=== PATIENT | male | born 1950 | race Caucasian/White ===

== ENCOUNTER 2024-03-25 00:49 | Inpatient (IN) | payer MEDICARE, OTHER ==
[2024-03-25] MEDS ORDERED: Nitroglycerin 0.4 MG TAB (25 Tab Bottle) SL PRN (02:48)
[2024-03-25] MEDS ORDERED: Heparin 25,000 units/D5W 500 ML IV SCH (03:00)
[2024-03-25 03:30] LABS: Hematocrit 35.6 % (42.0-52.0); Hemoglobin 11.9 g/dL (14.0-18.0); Platelet Count 410 10x3/uL (130-400)
[2024-03-25 03:54] LABS: Troponin I 9.133 ng/mL (< 0.028)
[2024-03-25 04:28] LABS: Influenza A by NAA Not Detected (NotDetected); Influenza B by NAA Not Detected (NotDetected); RSV by NAA Not Detected (NotDetected); SARS-CoV-2 NAA Rapid Test Not Detected (NotDetected)
[2024-03-25] MEDS: Aspirin Chewable 81 MG TAB PO SCH (08:14)
[2024-03-25] MEDS: Sodium Chloride 0.9% 1,000 ML IV SCH (08:14)
[2024-03-25] MEDS: Metoprolol Tartrate 25 MG TAB PO SCH (08:14)
[2024-03-25] MEDS: Pantoprazole DR 40 MG TAB PO SCH (08:14)
[2024-03-25] MEDS: Heparin 10,000 UNITS/ 10 ML VIAL SLOW IVP SCH (08:31)
[2024-03-25] MEDS: Furosemide 100 MG (10 mL) VIAL SLOW IVP SCH (09:04)
[2024-03-25] MEDS: Labetalol HCl 100 MG/20 ML VIAL SLOW IVP SCH (09:04)
[2024-03-25 09:47] LABS: #Basophils 0.07 10x3/uL (0.0-0.2); %Basophils 0.4 % (0.0-1.0); %Eosinophils 1.3 % (0.0-10.0); %Lymphocytes 10.3 % (21.0-51.0); %Monocytes 7.6 % (0.0-10.0); %Neutrophils 79.6 % (42.0-75.0); Hematocrit 38.3 % (42.0-52.0); Hemoglobin 12.7 g/dL (14.0-18.0); Mean Corpuscular HGB CONC 33.2 g/dL (32.0-36.0); Mean Corpuscular Hemoglobin 29.7 pg (27.0-31.0); Mean Corpuscular Volume 89.5 fL (78.0-98.0); Platelet Count 492 10x3/uL (130-400); RBC Distribution Width 12.9 % (11.5-14.5); Red Blood Cell (RBC) Count 4.28 mill/uL (4.70-6.10)
[2024-03-25 10:26] LABS: Anion Gap 20 mmol/L (10-20); BUN (Urea Nitrogen) 51 mg/dL (8.4-25.7); Calc. Creatinine Clearance 12 mL/min (70-130); Carbon Dioxide 21 mmol/L (23-31); Chloride 106 mmol/L (98-107); Estimated GFR 7; Glucose 133 mg/dL (83-110); Magnesium 2.2 mg/dL (1.6-2.6); Potassium 3.8 mmol/L (3.5-5.1); Sodium 143 mmol/L (136-145)
[2024-03-25 13:56] LABS: D-Dimer Test 1.96 mcg/mL (0.27-0.43); PTT 64.8 sec (22.9-36.1)
[2024-03-25] MEDS: Amlodipine 5 MG TAB PO SCH (17:26)
[2024-03-25] MEDS: Ipratropium/Albuterol 3 ML NEB NEB PRN (20:26)
[2024-03-25] MEDS: Carvedilol 6.25 MG TAB PO SCH (20:46)
[2024-03-25] MEDS: Atorvastatin Calcium 20 MG TAB PO SCH (20:46)
[2024-03-25] MEDS: Heparin 25,000 units/D5W 500 ML IVPB SCH (22:00)
[2024-03-26 04:48] LABS: Albumin 2.8 g/dL (3.4-4.8); Anion Gap 20 mmol/L (10-20); BUN (Urea Nitrogen) 63 mg/dL (8.4-25.7); BUN/Creatinine Ratio 8.81; Calc. Creatinine Clearance 13 mL/min (70-130); Calcium 7.7 mg/dL (7.8-10.44); Carbon Dioxide 19 mmol/L (23-31); Cardiac Risk 6.8 (Less than 4.5); Chloride 107 mmol/L (98-107); Cholesterol 164 mg/dl (< 200 Desired); Estimated GFR 7; Glucose 115 mg/dL (83-110); HDL Cholesterol 24 mg/dL (>60 Neg Risk); LDL Cholesterol, Calculated 118 mg/dL; Phosphorus 5.5 mg/dL (2.3-4.7); Potassium 3.4 mmol/L (3.5-5.1); Sodium 143 mmol/L (136-145); Triglycerides 110 mg/dL (Less than 150)
[2024-03-26] MEDS: Amlodipine 5 MG TAB PO SCH (11:54)
[2024-03-26 14:44] LABS: Bilirubin Negative (Negative); Blood, Urine Trace (Negative); CAUTI Indications for Culture Dysuria,urgency,freq; Clarity Clear (Clear); Glucose, Urine (Dipstick) Normal (Negative); Ketone, Urine Negative (Negative); Leukocyte 25 Leu/uL (Negative); Nitrite Negative (Negative); Protein, Urine (Dipstick) Negative (Neg-Trace); RBC/HPF 0-3 HPF (0-3); Specific Gravity, Urine 1.001 (1.002-1.036); Squamous Epithelial None Seen HPF (0-3); Urobilinogen Normal mg/dL (Less than 2); WBC/HPF 0-3 HPF (0-3)
[2024-03-26 14:45] LABS: Bacteria/HPF Rare-Few HPF (None Seen)
[2024-03-26 14:46] LABS: Urine Culture Reflex No No
[2024-03-26] MEDS: Furosemide 40 MG (4 mL) VIAL SLOW IVP SCH (16:46)
[2024-03-27 02:54] LABS: #Basophils 0.08 10x3/uL (0.0-0.2); %Basophils 0.5 % (0.0-1.0); %Eosinophils 2.9 % (0.0-10.0); %Lymphocytes 15.8 % (21.0-51.0); %Monocytes 9.1 % (0.0-10.0); %Neutrophils 70.8 % (42.0-75.0); Mean Corpuscular HGB CONC 33.3 g/dL (32.0-36.0); Mean Corpuscular Hemoglobin 30.1 pg (27.0-31.0); Mean Corpuscular Volume 90.4 fL (78.0-98.0); Mean Platelet Volume 10.6 fL (7.4-10.4); Platelet Count 418 10x3/uL (130-400); RBC Distribution Width 12.7 % (11.5-14.5); Red Blood Cell (RBC) Count 3.65 mill/uL (4.70-6.10)
[2024-03-27 03:22] LABS: Anion Gap 17 mmol/L (10-20); BUN (Urea Nitrogen) 52 mg/dL (8.4-25.7); Calc. Creatinine Clearance 19 mL/min (70-130); Carbon Dioxide 23 mmol/L (23-31); Chloride 108 mmol/L (98-107); Estimated GFR 12; Glucose 109 mg/dL (83-110); Potassium 2.8 mmol/L (3.5-5.1); Sodium 145 mmol/L (136-145)
[2024-03-27] MEDS: Potassium Chloride 20 MEQ TAB PO SCH (04:31)
[2024-03-27 10:23] LABS: Potassium 3.1 mmol/L (3.5-5.1)
[2024-03-28 03:16] LABS: #Basophils 0.11 10x3/uL (0.0-0.2); %Basophils 0.7 % (0.0-1.0); %Eosinophils 3.9 % (0.0-10.0); %Lymphocytes 22.2 % (21.0-51.0); %Monocytes 9.1 % (0.0-10.0); %Neutrophils 62.7 % (42.0-75.0); Hematocrit 36.8 % (42.0-52.0); Hemoglobin 12.3 g/dL (14.0-18.0); Mean Corpuscular HGB CONC 33.4 g/dL (32.0-36.0); Mean Corpuscular Volume 89.8 fL (78.0-98.0); Mean Platelet Volume 10.4 fL (7.4-10.4); Platelet Count 503 10x3/uL (130-400); RBC Distribution Width 12.7 % (11.5-14.5)
[2024-03-28 03:36] LABS: Anion Gap 19 mmol/L (10-20); BUN (Urea Nitrogen) 38 mg/dL (8.4-25.7); Calc. Creatinine Clearance 37 mL/min (70-130); Calcium 8.3 mg/dL (7.8-10.44); Carbon Dioxide 27 mmol/L (23-31); Chloride 99 mmol/L (98-107); Estimated GFR 28; Glucose 107 mg/dL (83-110); Potassium 2.7 mmol/L (3.5-5.1); Sodium 142 mmol/L (136-145)
[2024-03-28] MEDS: Heparin 5,000 UNITS/ML VIAL SC SCH (13:46)
[2024-03-29 04:34] LABS: Hematocrit 38.3 % (42.0-52.0); Hemoglobin 13.1 g/dL (14.0-18.0); Platelet Count 498 10x3/uL (130-400)
[2024-03-29 04:35] LABS: #Basophils 0.12 10x3/uL (0.0-0.2); %Basophils 0.8 % (0.0-1.0); %Eosinophils 5.6 % (0.0-10.0); %Lymphocytes 15.8 % (21.0-51.0); %Monocytes 10.3 % (0.0-10.0); %Neutrophils 65.7 % (42.0-75.0); Hematocrit 38.3 % (42.0-52.0); Hemoglobin 12.7 g/dL (14.0-18.0); Mean Corpuscular HGB CONC 33.2 g/dL (32.0-36.0); Mean Corpuscular Hemoglobin 29.8 pg (27.0-31.0); Mean Corpuscular Volume 89.9 fL (78.0-98.0); Mean Platelet Volume 10.3 fL (7.4-10.4); Platelet Count 522 10x3/uL (130-400); RBC Distribution Width 12.5 % (11.5-14.5); Red Blood Cell (RBC) Count 4.26 mill/uL (4.70-6.10)
[2024-03-29 04:46] LABS: Anion Gap 19 mmol/L (10-20); BUN (Urea Nitrogen) 28 mg/dL (8.4-25.7); Calc. Creatinine Clearance 53 mL/min (70-130); Calcium 8.2 mg/dL (7.8-10.44); Carbon Dioxide 28 mmol/L (23-31); Chloride 98 mmol/L (98-107); Estimated GFR 45; Glucose 106 mg/dL (83-110); Potassium 2.6 mmol/L (3.5-5.1); Sodium 142 mmol/L (136-145)
[2024-03-29] MEDS ORDERED: Electrolyte Replacement Protocol 1 EACH FS SCH (05:00)
[2024-03-29] MEDS: Potassium Chloride 20 MEQ TAB PO SCH ×2 (05:42→23:12)
[2024-03-29] MEDS: Potassium Chloride 40 MEQ in Sodium Chloride 0.9% 250 ML 250 ML IVPB SCH (11:20)
[2024-03-29 18:25] LABS: Anion Gap 16 mmol/L (10-20); BUN (Urea Nitrogen) 23 mg/dL (8.4-25.7); Calc. Creatinine Clearance 57 mL/min (70-130); Calcium 8.4 mg/dL (7.8-10.44); Carbon Dioxide 29 mmol/L (23-31); Chloride 99 mmol/L (98-107); Estimated GFR 50; Glucose 101 mg/dL (83-110); Magnesium 1.7 mg/dL (1.6-2.6); Potassium 3.1 mmol/L (3.5-5.1); Sodium 141 mmol/L (136-145)
[2024-03-29] MEDS: Magnesium 2 GM/50 ML(in water) 2 GM in Premix 1 BAG IVPB SCH (23:48)
[2024-03-30 04:24] LABS: #Basophils 0.13 10x3/uL (0.0-0.2); %Basophils 0.8 % (0.0-1.0); %Eosinophils 4.8 % (0.0-10.0); %Lymphocytes 18.6 % (21.0-51.0); %Monocytes 9.5 % (0.0-10.0); %Neutrophils 64.4 % (42.0-75.0); Hematocrit 35.8 % (42.0-52.0); Hemoglobin 11.9 g/dL (14.0-18.0); Mean Corpuscular HGB CONC 33.2 g/dL (32.0-36.0); Mean Corpuscular Volume 90.2 fL (78.0-98.0); Mean Platelet Volume 10.3 fL (7.4-10.4); Platelet Count 521 10x3/uL (130-400); RBC Distribution Width 12.7 % (11.5-14.5); Red Blood Cell (RBC) Count 3.97 mill/uL (4.70-6.10)
[2024-03-30 04:34] LABS: Anion Gap 14 mmol/L (10-20); BUN (Urea Nitrogen) 20 mg/dL (8.4-25.7); Calc. Creatinine Clearance 64 mL/min (70-130); Calcium 8.2 mg/dL (7.8-10.44); Carbon Dioxide 27 mmol/L (23-31); Chloride 102 mmol/L (98-107); Estimated GFR 58; Glucose 105 mg/dL (83-110); Potassium 3.4 mmol/L (3.5-5.1); Sodium 140 mmol/L (136-145)
[2024-03-30] MEDS: Potassium Chloride 20 MEQ TAB PO SCH (09:29)
[2024-03-30] MEDS ORDERED: Communication Order-Pharmacy FS SCH (13:30)
[2024-03-31 04:22] LABS: #Basophils 0.12 10x3/uL (0.0-0.2); %Basophils 0.7 % (0.0-1.0); %Eosinophils 5.4 % (0.0-10.0); %Lymphocytes 18.9 % (21.0-51.0); %Monocytes 9.4 % (0.0-10.0); %Neutrophils 62.8 % (42.0-75.0); Hematocrit 35.2 % (42.0-52.0); Hemoglobin 11.6 g/dL (14.0-18.0); Mean Platelet Volume 10.3 fL (7.4-10.4); Platelet Count 509 10x3/uL (130-400); RBC Distribution Width 12.7 % (11.5-14.5); Red Blood Cell (RBC) Count 3.87 mill/uL (4.70-6.10)
[2024-03-31 04:39] LABS: Anion Gap 12 mmol/L (10-20); BUN (Urea Nitrogen) 19 mg/dL (8.4-25.7); Calc. Creatinine Clearance 75 mL/min (70-130); Calcium 8.2 mg/dL (7.8-10.44); Carbon Dioxide 25 mmol/L (23-31); Chloride 103 mmol/L (98-107); Estimated GFR 70; Glucose 103 mg/dL (83-110); Potassium 3.4 mmol/L (3.5-5.1); Sodium 137 mmol/L (136-145)
[2024-03-31] MEDS: Potassium Chloride 20 MEQ TAB PO SCH (09:39)
[2024-03-31] MEDS ORDERED: Communication Order-Pharmacy FS SCH (10:15)
[2024-03-31 13:25] VITALS: BMI 27.3
[2024-03-31] MEDS: Melatonin 3 MG TAB PO SCH (20:54)
[2024-03-31] MEDS: Sodium Chloride 0.9% 1,000 ML IV SCH (20:55)
[2024-04-01 04:46] LABS: #Basophils 0.16 10x3/uL (0.0-0.2); %Basophils 0.9 % (0.0-1.0); %Eosinophils 4.8 % (0.0-10.0); %Lymphocytes 19.6 % (21.0-51.0); %Monocytes 9.3 % (0.0-10.0); %Neutrophils 62.6 % (42.0-75.0); Hematocrit 34.2 % (42.0-52.0); Mean Corpuscular HGB CONC 32.2 g/dL (32.0-36.0); Mean Corpuscular Hemoglobin 30.1 pg (27.0-31.0); Mean Corpuscular Volume 93.4 fL (78.0-98.0); Mean Platelet Volume 10.4 fL (7.4-10.4); Platelet Count 507 10x3/uL (130-400); RBC Distribution Width 12.7 % (11.5-14.5); Red Blood Cell (RBC) Count 3.66 mill/uL (4.70-6.10)
[2024-04-01 05:08] LABS: Anion Gap 14 mmol/L (10-20); BUN (Urea Nitrogen) 18 mg/dL (8.4-25.7); Calc. Creatinine Clearance 70 mL/min (70-130); Calcium 8.2 mg/dL (7.8-10.44); Carbon Dioxide 24 mmol/L (23-31); Chloride 105 mmol/L (98-107); Estimated GFR 66; Glucose 105 mg/dL (83-110); Potassium 3.7 mmol/L (3.5-5.1); Sodium 139 mmol/L (136-145)
[2024-04-01] MEDS ORDERED: Heparin 10,000 UNITS/ 10 ML VIAL ONE (06:14)
[2024-04-01] MEDS ORDERED: Nitroglycerin 50 MG/250 ML BOT 250 ML ONE (06:14)
[2024-04-01] MEDS ORDERED: Verapamil 5 MG/2 ML VIAL ONE (06:14)
[2024-04-01] MEDS ORDERED: Adenosine 6 mg (2 mL) VIAL ONE (06:15)
[2024-04-01] MEDS ORDERED: fentaNYL 50 mcg/mL 1 mL Vial ONE (06:24)
[2024-04-01] MEDS ORDERED: Midazolam HCl 2 mg/2 ml Vial ONE (06:24)
[2024-04-01] MEDS ORDERED: TICAGRELOR 90 MG TABLET ONE (08:29)
[2024-04-01] MEDS: Sodium Chloride 0.9% 1,000 ML IV SCH (10:14)
[2024-04-01] MEDS ORDERED: Iopamidol 370 76% 100 ML VIAL ONE (12:57)
[2024-04-01] MEDS: TICAGRELOR 90 MG TABLET PO SCH (21:44)
[2024-04-02 05:10] LABS: #Basophils 0.12 10x3/uL (0.0-0.2); %Basophils 0.7 % (0.0-1.0); %Eosinophils 4.7 % (0.0-10.0); %Monocytes 8.9 % (0.0-10.0); %Neutrophils 67.5 % (42.0-75.0); Hematocrit 33.5 % (42.0-52.0); Hemoglobin 10.9 g/dL (14.0-18.0); Mean Corpuscular HGB CONC 32.5 g/dL (32.0-36.0); Mean Corpuscular Hemoglobin 29.7 pg (27.0-31.0); Mean Corpuscular Volume 91.3 fL (78.0-98.0); Mean Platelet Volume 10.3 fL (7.4-10.4); Platelet Count 490 10x3/uL (130-400); RBC Distribution Width 12.5 % (11.5-14.5); Red Blood Cell (RBC) Count 3.67 mill/uL (4.70-6.10)
[2024-04-02 05:41] VITALS: BMI 26.5
[2024-04-02 05:48] LABS: ALT (SGPT) 22 U/L (8-55); AST (SGOT) 57 U/L (5-34); Albumin 2.6 g/dL (3.4-4.8); Alkaline Phosphatase 70 U/L (40-110); Anion Gap 15 mmol/L (10-20); BUN (Urea Nitrogen) 14 mg/dL (8.4-25.7); Bilirubin, Total 0.7 mg/dL (0.2-1.2); Calc. Creatinine Clearance 90 mL/min (70-130); Calcium 8.3 mg/dL (7.8-10.44); Carbon Dioxide 18 mmol/L (23-31); Chloride 111 mmol/L (98-107); Estimated GFR 90; Globulin 3.8 g/dL (2.4-3.5); Glucose 100 mg/dL (83-110); Potassium 3.7 mmol/L (3.5-5.1); Protein, Total 6.4 g/dL (5.8-8.1); Sodium 140 mmol/L (136-145)
[2024-04-02] MEDS: Sacubitril 24MG/Valsartan 26 MG TAB PO SCH (10:02)
[2024-04-03 08:44] VITALS: BP 128/72; TEMP 98.9
== END 2024-04-03 13:40 | disposition home or self-care (01) | DRG 323 ==
LOC: IMCU/EMU 02:02 → 2NO 03-29 23:26
PROVIDERS: ADMIT Internal Medicine; ATTEND Internal Medicine
PROC: 027035Z Dilation of Coronary Artery, One Artery with Two Drug-eluting Intraluminal Devices, Percutaneous Approach (ICD-10-PCS; principal; 2024-04-01)
PROC: 02F03ZZ Fragmentation in Coronary Artery, One Artery, Percutaneous Approach (ICD-10-PCS; 2024-04-01)
PROC: 4A023N7 Measurement of Cardiac Sampling and Pressure, Left Heart, Percutaneous Approach (ICD-10-PCS; 2024-04-01)
PROC: B2111ZZ Fluoroscopy of Multiple Coronary Arteries using Low Osmolar Contrast (ICD-10-PCS; 2024-04-01)
PROC: B2151ZZ Fluoroscopy of Left Heart using Low Osmolar Contrast (ICD-10-PCS; 2024-04-01)
DX: I21.4 Non-ST elevation (NSTEMI) myocardial infarction (principal); J96.01 Acute respiratory failure with hypoxia; N17.9 Acute kidney failure, unspecified; N13.8 Other obstructive and reflux uropathy; N25.81 Secondary hyperparathyroidism of renal origin; I13.0 Hypertensive heart and chronic kidney disease with heart failure and stage 1 through stage 4 chronic kidney disease, or unspecified chronic kidney disease; E87.20 Acidosis, unspecified; I50.22 Chronic systolic (congestive) heart failure; I25.10 Atherosclerotic heart disease of native coronary artery without angina pectoris; I25.5 Ischemic cardiomyopathy; N40.0 Benign prostatic hyperplasia without lower urinary tract symptoms; N40.1 Benign prostatic hyperplasia with lower urinary tract symptoms; R33.8 Other retention of urine; N52.9 Male erectile dysfunction, unspecified; D64.9 Anemia, unspecified; D72.829 Elevated white blood cell count, unspecified; D75.839 Thrombocytosis, unspecified; R94.31 Abnormal electrocardiogram [ECG] [EKG]; E83.39 Other disorders of phosphorus metabolism; N18.9 Chronic kidney disease, unspecified; E87.6 Hypokalemia
CPT/HCPCS: 0241U; 36415; 71045; 74176; 76770; 78451; 80048; 80053; 80061; 80069; 81001; 83735; 83880; 83970; 84145; 84484; 85014; 85018; 85025; 85049; 85347; 85379; 85730; 87040; 92928; 92972; 93005; 93010; 93306; 93458; 93798; 94640; 94660; 94760; 97139; 99152; 99153; A9540; C1761; C1769; C1874; C1887; C1894; C9600; J0153; J1644; J1940; J2250; J3010; J3475; J3480; J7030; J7050; J7620; Q9967

== ENCOUNTER 2024-04-20 11:46 | Outpatient (CLI) | payer MEDICARE, OTHER | END 2024-04-20 11:47 | disposition home or self-care (01) | LOC: ULT 11:46 | PROVIDERS: ATTEND Internal Medicine Nephrology | DX: N32.0 Bladder-neck obstruction (principal); R35.0 Frequency of micturition; N13.30 Unspecified hydronephrosis; N32.89 Other specified disorders of bladder; Z90.79 Acquired absence of other genital organ(s) | CPT/HCPCS: 76770 ==

== ENCOUNTER 2024-05-12 11:37 | Inpatient (IN) | payer MEDICARE ==
[2024-05-12] MEDS ORDERED: cefTRIAXone (ROCEPHIN) 1 GM VIAL ONE (12:18)
[2024-05-12 12:34] LABS: Hematocrit 35.5 % (42.0-52.0); Mean Corpuscular HGB CONC 33.8 g/dL (32.0-36.0); Mean Corpuscular Hemoglobin 29.3 pg (27.0-31.0); Mean Corpuscular Volume 86.8 fL (78.0-98.0); Mean Platelet Volume 9.3 fL (7.4-10.4); Platelet Count 658 10x3/uL (130-400); RBC Distribution Width 13.3 % (11.5-14.5); Red Blood Cell (RBC) Count 4.09 mill/uL (4.70-6.10)
[2024-05-12 12:42] LABS: ALT (SGPT) 48 U/L (8-55); AST (SGOT) 29 U/L (5-34); Alkaline Phosphatase 105 U/L (40-110); Anion Gap 19 mmol/L (10-20); BUN (Urea Nitrogen) 54 mg/dL (8.4-25.7); Bilirubin, Total 0.6 mg/dL (0.2-1.2); CK (CPK) 33 U/L (30-200); Calc. Creatinine Clearance 0 mL/min (70-130); Calcium 9.4 mg/dL (7.8-10.44); Carbon Dioxide 17 mmol/L (23-31); Chloride 101 mmol/L (98-107); Estimated GFR 22; Globulin 5.4 g/dL (2.4-3.5); Glucose 141 mg/dL (83-110); Lipase 38 U/L (8-78); Magnesium 2.3 mg/dL (1.6-2.6); Potassium 4.6 mmol/L (3.5-5.1); Protein, Total 8.4 g/dL (5.8-8.1); Sodium 132 mmol/L (136-145)
[2024-05-12 12:43] LABS: Prothrombin Time 13.5 sec (12.0-14.7)
[2024-05-12 12:44] LABS: PTT 33.8 sec (22.9-36.1)
[2024-05-12 12:45] LABS: Troponin I 0.045 ng/mL (< 0.028)
[2024-05-12 12:56] LABS: Band 9 % (5-11); Eosinophils 1 % (0-10); Lymphocytes 11 % (21-51); Monocytes 12 % (0-10); Neutrophil 67 % (42-75); Platelet Adequacy Comment Platelets Increased; Polychromasia SLIGHT = 2-3 cells HPF (0-2)
[2024-05-12 13:26] LABS: Bilirubin Negative (Negative); Blood, Urine Large (Negative); Glucose, Urine (Dipstick) Negative (Negative); Ketone, Urine Negative (Negative); Leukocyte Large (Negative); Nitrite Negative (Negative); Protein, Urine (Dipstick) 100 mg/dL (Neg-Trace); Specific Gravity, Urine 1.025 (1.005-1.030); Urobilinogen 0.2 mg/dL (Less than 2)
[2024-05-12 13:27] LABS: Clarity Extra Turbid (Clear)
[2024-05-12 13:37] LABS: Bacteria/HPF 2+ HPF (None Seen); CAUTI Indications for Culture Alt mental st,lethar; RBC/HPF 0-3 HPF (0-3); WBC/HPF Greater than 50 HPF (0-3)
[2024-05-12 13:38] LABS: Urine Culture Reflex Yes Yes
[2024-05-12 14:09] LABS: Troponin I 0.029 ng/mL (< 0.028)
[2024-05-12 15:06] LABS: Lactic Acid 0.83 mmol/L (0.5-2.2)
[2024-05-12] MEDS ORDERED: Acetaminophen 650 MG Suppository PR PRN (15:13)
[2024-05-12] MEDS ORDERED: Ondansetron PF 4 MG/2 ML Vial IVP PRN (15:13)
[2024-05-12] MEDS ORDERED: Ondansetron ODT 4 MG TAB PO PRN (15:13)
[2024-05-12] MEDS ORDERED: Acetaminophen 325 MG TAB PO PRN (15:13)
[2024-05-12 15:43] LABS: Magnesium 2.3 mg/dL (1.6-2.6)
[2024-05-12] MEDS: Tamsulosin HCl 0.4 MG CAP PO SCH (17:31)
[2024-05-12] MEDS: Sodium Chloride 0.9% 1,000 ML IV SCH (17:34)
[2024-05-12 17:39] VITALS: BMI 26.2
[2024-05-12 17:58] LABS: Troponin I 0.029 ng/mL (< 0.028)
[2024-05-12 20:16] LABS: Troponin I 0.035 ng/mL (< 0.028)
[2024-05-12] MEDS: Heparin 5,000 UNITS/ML VIAL SC SCH (21:10)
[2024-05-13 05:03] LABS: Hematocrit 28.4 % (42.0-52.0); Hemoglobin 9.5 g/dL (14.0-18.0); Mean Corpuscular HGB CONC 33.5 g/dL (32.0-36.0); Mean Corpuscular Hemoglobin 29.4 pg (27.0-31.0); Mean Corpuscular Volume 87.9 fL (78.0-98.0); Mean Platelet Volume 9.2 fL (7.4-10.4); Platelet Count 493 10x3/uL (130-400); RBC Distribution Width 13.3 % (11.5-14.5); Red Blood Cell (RBC) Count 3.23 mill/uL (4.70-6.10)
[2024-05-13 05:15] LABS: Anion Gap 13 mmol/L (10-20); BUN (Urea Nitrogen) 41 mg/dL (8.4-25.7); Calc. Creatinine Clearance 46 mL/min (70-130); Calcium 8.2 mg/dL (7.8-10.44); Carbon Dioxide 19 mmol/L (23-31); Chloride 109 mmol/L (98-107); Estimated GFR 42; Glucose 101 mg/dL (83-110); Potassium 4.3 mmol/L (3.5-5.1); Sodium 137 mmol/L (136-145)
[2024-05-13 05:34] LABS: Band 4 % (5-11); Lymphocytes 5 % (21-51); Metamyelocyte 6 % (0-0); Monocytes 7 % (0-10); Myelocyte 3 % (0-0); Neutrophil 76 % (42-75); Platelet Adequacy Comment Platelets Increased; RBC Morphology Within Normal Limits
[2024-05-13] MEDS: Pantoprazole DR 40 MG TAB PO SCH (09:15)
[2024-05-13] MEDS: Clopidogrel Bisulfate 75 MG TAB PO SCH (09:15)
[2024-05-13] MEDS: Saccharomyces boulardii 250 MG CAP PO SCH (09:15)
[2024-05-13] MEDS: Tamsulosin HCl 0.4 MG CAP PO SCH (09:15)
[2024-05-13] MEDS: Aspirin Chewable 81 MG TAB PO SCH (09:15)
[2024-05-13] MEDS: Sodium Chloride 0.9% 1,000 ML IV SCH (10:04)
[2024-05-13] MEDS: cefTRIAXone\\ROCEPHIN 1 GM in Sodium Chloride 0.9% 100 ML IVPB SCH (12:49)
[2024-05-13] MEDS: Sacubitril 24MG/Valsartan 26 MG TAB PO SCH (20:58)
[2024-05-13] MEDS: Atorvastatin Calcium 20 MG TAB PO SCH (20:59)
[2024-05-13] MEDS: Carvedilol 6.25 MG TAB PO SCH (20:59)
[2024-05-13] MEDS: TICAGRELOR 90 MG TABLET PO SCH (20:59)
[2024-05-14 06:10] LABS: Anion Gap 14 mmol/L (10-20); BUN (Urea Nitrogen) 21 mg/dL (8.4-25.7); Calc. Creatinine Clearance 80 mL/min (70-130); Calcium 8.4 mg/dL (7.8-10.44); Carbon Dioxide 17 mmol/L (23-31); Chloride 113 mmol/L (98-107); Estimated GFR 83; Glucose 91 mg/dL (83-110); Sodium 140 mmol/L (136-145)
[2024-05-14 06:31] LABS: #Basophils 0.13 10x3/uL (0.0-0.2); %Basophils 0.8 % (0.0-1.0); %Eosinophils 2.9 % (0.0-10.0); %Lymphocytes 15.9 % (21.0-51.0); %Monocytes 7.5 % (0.0-10.0); %Neutrophils 65.4 % (42.0-75.0); Hematocrit 28.3 % (42.0-52.0); Hemoglobin 9.2 g/dL (14.0-18.0); Mean Corpuscular HGB CONC 32.5 g/dL (32.0-36.0); Mean Corpuscular Hemoglobin 29.3 pg (27.0-31.0); Mean Corpuscular Volume 90.1 fL (78.0-98.0); Platelet Count 499 10x3/uL (130-400); RBC Distribution Width 13.5 % (11.5-14.5); Red Blood Cell (RBC) Count 3.14 mill/uL (4.70-6.10)
[2024-05-14 06:53] LABS: Anisocytosis SLIGHT = 6-15 cells HPF (0-5); Lymphocytes 13 % (21-51); Metamyelocyte 1 % (0-0); Monocytes 7 % (0-10); Myelocyte 6 % (0-0); Neutrophil 72 % (42-75); Platelet Adequacy Comment Platelets Normal
[2024-05-15 05:50] LABS: Hemoglobin 9.9 g/dL (14.0-18.0); Mean Corpuscular Hemoglobin 29.3 pg (27.0-31.0); Mean Corpuscular Volume 88.8 fL (78.0-98.0); Platelet Count 507 10x3/uL (130-400); RBC Distribution Width 13.6 % (11.5-14.5); Red Blood Cell (RBC) Count 3.38 mill/uL (4.70-6.10)
[2024-05-15 06:08] LABS: Anion Gap 16 mmol/L (10-20); BUN (Urea Nitrogen) 13 mg/dL (8.4-25.7); Calc. Creatinine Clearance 79 mL/min (70-130); Calcium 8.4 mg/dL (7.8-10.44); Carbon Dioxide 18 mmol/L (23-31); Chloride 112 mmol/L (98-107); Estimated GFR 83; Glucose 104 mg/dL (83-110); Potassium 3.8 mmol/L (3.5-5.1); Sodium 142 mmol/L (136-145)
[2024-05-15 06:40] LABS: Band 4 % (5-11); Eosinophils 3 % (0-10); Lymphocytes 20 % (21-51); Monocytes 9 % (0-10); Myelocyte 1 % (0-0); Neutrophil 63 % (42-75); Platelet Adequacy Comment Platelets Increased; RBC Morphology Within Normal Limits
[2024-05-16 05:30] LABS: Hematocrit 30.5 % (42.0-52.0); Hemoglobin 9.8 g/dL (14.0-18.0); Mean Corpuscular HGB CONC 32.1 g/dL (32.0-36.0); Mean Corpuscular Volume 90.2 fL (78.0-98.0); Mean Platelet Volume 8.9 fL (7.4-10.4); Platelet Count 525 10x3/uL (130-400); RBC Distribution Width 13.6 % (11.5-14.5); Red Blood Cell (RBC) Count 3.38 mill/uL (4.70-6.10)
[2024-05-16 06:27] LABS: Anisocytosis SLIGHT = 6-15 cells HPF (0-5); Eosinophils 2 % (0-10); Lymphocytes 18 % (21-51); Macrocytosis SLIGHT = 6-15 cells HPF (0-5); Metamyelocyte 4 % (0-0); Monocytes 5 % (0-10); Myelocyte 2 % (0-0); Neutrophil 68 % (42-75); Platelet Adequacy Comment Platelets Normal; Polychromasia SLIGHT = 2-3 cells HPF (0-2); Smudge Cells 5.8 %
[2024-05-16 07:34] VITALS: BP 128/79; TEMP 98.2
== END 2024-05-16 10:37 | disposition home or self-care (01) | DRG 698 ==
LOC: ERS 11:37 → 2NO 17:01 → OBSVTOIN 05-13 14:12
PROVIDERS: ADMIT Internal Medicine; ATTEND Internal Medicine
DX: T83.511A Infection and inflammatory reaction due to indwelling urethral catheter, initial encounter (principal); A41.59 Other Gram-negative sepsis; I13.0 Hypertensive heart and chronic kidney disease with heart failure and stage 1 through stage 4 chronic kidney disease, or unspecified chronic kidney disease; N17.9 Acute kidney failure, unspecified; E87.21 Acute metabolic acidosis; I50.22 Chronic systolic (congestive) heart failure; N39.0 Urinary tract infection, site not specified; Y73.2 Prosthetic and other implants, materials and accessory gastroenterology and urology devices associated with adverse incidents; Y84.6 Urinary catheterization as the cause of abnormal reaction of the patient, or of later complication, without mention of misadventure at the time of the procedure; E78.5 Hyperlipidemia, unspecified; N18.9 Chronic kidney disease, unspecified; I25.10 Atherosclerotic heart disease of native coronary artery without angina pectoris; I25.5 Ischemic cardiomyopathy; D63.8 Anemia in other chronic diseases classified elsewhere; I25.2 Old myocardial infarction; Z95.5 Presence of coronary angioplasty implant and graft; N40.0 Benign prostatic hyperplasia without lower urinary tract symptoms; B96.1 Klebsiella pneumoniae [K. pneumoniae] as the cause of diseases classified elsewhere; Z79.899 Other long term (current) drug therapy; Z79.02 Long term (current) use of antithrombotics/antiplatelets
CPT/HCPCS: 36415; 71045; 80048; 80053; 81001; 82550; 83605; 83690; 83735; 83880; 84145; 84484; 85025; 85610; 85730; 87040; 87077; 87086; 87186; 93005; 96361; 96374; J0696; J1644; J7030